=== PATIENT | female | born 1955 | race Caucasian/White ===

== ENCOUNTER 2018-10-04 10:39 | Emergency (ER) | payer OTHER ==
[~2018-10-04] VITALS: Ht 162 cm; Wt 90.7 kg
[~2018-10-04 10:39] MED LIST: GLUCOPHAGE1000 MG; HUMALOG100 UNIT/1; LISINOPRIL-HCT1 EAC2; LOVASTAT40; OMEPRAZOLE20 M2
[2018-10-04] MEDS ORDERED: FUROSEMIDE 80 M80 M1 PO (10:57)
[2018-10-04 12:12] LABS: ABSOLUTE BASOPHILS 0.1 thou/uL (0.0-0.2); ABSOLUTE EOSINOPHILS 0.5 thou/uL (0.0-0.7); ABSOLUTE LYMPHOCYTES 2.6 thou/uL (0.8-5.3); ABSOLUTE MONOCYTES 0.7 thou/uL (0.0-1.2); ABSOLUTE NEUTROPHILS 5.2 thou/uL (1.6-8.1); BASOPHILS 0.7 %; EOSINOPHILS 5.2 %; HEMATOCRIT 44.7 % (37.0-47.0); HEMOGLOBIN 15.1 gm/dL (12.0-15.0); LYMPHOCYTES 28.8 %; MCHC 33.7 g/dL (28.0-37.0); MCV 83.3 fL (80.0-100.0); MONOCYTES 7.6 %; MPV 9.4 fl. (7.2-11.1); NUCLEATED RBCS 0 /100WBC; PLATELET COUNT* 274 thou/uL (150-400); POLYS 57.7 %; RBC 5.37 mil/uL (4.20-5.00); RDW-CV 14.7 % (10.5-14.5)
[2018-10-04 12:29] LABS: ANION GAP 5 mmol/L (7-16); BUN 17 mg/dL (7-18); CALCIUM 8.8 mg/dL (8.5-10.1); CHLORIDE 102 mmol/L (98-107); CO2 32 mmol/L (21-32); CREATININE 0.9 mg/dL (0.6-1.3); GLUCOSE 340 mg/dL (70-99); POTASSIUM 3.6 mmol/L (3.5-5.1); SODIUM 139 mmol/L (136-145)
[2018-10-04 12:46] LABS: ALKALINE PHOSPHATASE 142 U/L (46-116); SGOT 18 U/L (15-37); SGPT 25 U/L (30-65); TOTAL BILIRUBIN 0.3 mg/dL (<0.1-1.0); TOTAL PROTEIN 6.9 g/dL (6.4-8.2); TROPONIN-I LEVEL <0.06 ng/mL (<0.06)
[2018-10-04] MEDS ORDERED: HYDROCODONE-AP1 EAC6 PO (13:50)
[2018-10-04] MEDS ORDERED: FLEXERIL PO (13:50)
[2018-10-04 14:12] VITALS: BP 193/65
--- NOTE | 2018-10-05 10:21 | EKG ---
[place] [address] ELECTROCARDIOGRAM REPORT Name: SHRUTHIJAN C Room: [facility]#: [id number] Admission: 10/04/18 Attend Phys: Discharge: 10/04/18 Date of : 51 Report #: [id number] THIS REPORT FOR: //name// [facility] ED Test Date: 2018-10-04 Test Time: 11:51:45 Pat Name: JAN HAWKINS Department: Room: Gender: F Lawn Care Technician: Anitha ANTHONY : 1955 Requested By: Chaka Silver Order Number: [id number] MD: Alverto Wilson Measurements Intervals [place] Rate: 66 P: 18 PA: 143 QRS: -21 QRSD: 107 T: 141 QT: 460 QTc: 482 Interpretive Statements Sinus rhythm Borderline left axis deviation Nonspecific T abnrm, anterolateral leads No previous ECG available for comparison Electronically Signed On 10-05-2018 10:21:02 PIN BALL MACHINE MECHANIC by Alverto Wilson [email or web address] <ELECTRONICALLY SIGNED> By: Alverto Wilson MD, [facility] 10/05/18 1021 1151 115 Alverto Wilson MD, FACC /EPI
== END 2018-10-04 14:19 | disposition home or self-care (01) ==
LOC: M.ERS 10:39
PROVIDERS: Emergency Medicine Emergency Medical Services
DX: S16.1XXA Strain of muscle, fascia and tendon at neck level, initial encounter (principal); E11.9 Type 2 diabetes mellitus without complications; I10 Essential (primary) hypertension; E78.5 Hyperlipidemia, unspecified; M25.511 Pain in right shoulder; I95.1 Orthostatic hypotension; Z90.49 Acquired absence of other specified parts of digestive tract; W18.39XA Other fall on same level, initial encounter; Y93.89 Activity, other specified; Y92.090 Kitchen in other non-institutional residence as the place of occurrence of the external cause; Y99.8 Other external cause status

== ENCOUNTER 2020-05-11 10:04 | Emergency (ER) | payer OTHER ==
[~2020-05-11] VITALS: Ht 167.6 cm; Wt 81.7 kg
[~2020-05-11 10:04] MED LIST changes: +FLEXERIL PO; +FUROSEMIDE 80 M80 M1 PO; +HYDROCODONE-AP1 EAC6 PO
[2020-05-11] MEDS ORDERED: HYDROCHLOROTH12.5 M2 PO (10:21)
[2020-05-11] MEDS ORDERED: PREGABALIN75 MG PO (10:22)
[2020-05-11] MEDS ORDERED: SINGULAIR 10 MG10 MG PO (10:22)
[2020-05-11] MEDS ORDERED: JARDIANCE25 MG PO (10:22)
[2020-05-11] MEDS ORDERED: LANTUS SUBQ (10:23)
[2020-05-11] MEDS ORDERED: JANUVIA100 MG PO (10:24)
[2020-05-11] MEDS ORDERED: MECLIZINE HCL25 M1 PO (10:24)
[2020-05-11] MEDS ORDERED: AMARYL4 MG PO (10:25)
[2020-05-11] MEDS ORDERED: NORVASC 2.5 MG2.5 M1 PO (10:25)
[2020-05-11] MEDS ORDERED: XARELTO20 MG PO (10:25)
[2020-05-11] MEDS ORDERED: PROTONIX40 M2 PO (10:25)
[2020-05-11 10:53] LABS: URINE BILIRUBIN NEGATIVE (Negative); URINE BLOOD 1+ (Negative); URINE CLARITY CLEAR; URINE COLOR YELLOW; URINE GLUCOSE-RANDOM 3+ (Negative); URINE KETONES NEGATIVE (Negative); URINE LEUKOCYTES-REFLEX NEGATIVE (Negative); URINE NITRITE-REFLEX NEGATIVE (Negative); URINE PROTEIN 3+ (Negative); URINE SPECIFIC GRAVITY 1.025 (1.005-1.030)
[2020-05-11 10:56] LABS: BACTERIA-REFLEX 1-9 Few /HPF (None Seen); CASTS None Seen /LPF (None Seen); CRYSTALS None Seen /LPF (None Seen); MUCUS 0-3 Light strn/LPF (None Seen); SQUAMOUS 0-3 Few /LPF (0-3); URINE RBC 3-10 Few /HPF (0-2); URINE WBC-REFLEX 0-5 Rare /HPF (0-5)
[2020-05-11 11:01] LABS: APTT 31.8 Seconds (25.0-31.3); INR 1.1; PROTIME 11.1 Seconds (9.20-11.50)
[2020-05-11 11:02] LABS: ABSOLUTE BASOPHILS 0.1 thou/uL (0.0-0.2); ABSOLUTE EOSINOPHILS 0.3 thou/uL (0.0-0.7); ABSOLUTE LYMPHOCYTES 2.5 thou/uL (0.8-5.3); ABSOLUTE MONOCYTES 0.8 thou/uL (0.0-1.2); ABSOLUTE NEUTROPHILS 5.4 thou/uL (1.6-8.1); BASOPHILS 0.9 %; EOSINOPHILS 3.1 %; HEMATOCRIT 45.8 % (37.0-47.0); LYMPHOCYTES 27.2 %; MCH 28.8 pg (26.0-34.0); MCHC 34.8 g/dL (28.0-37.0); MCV 82.7 fL (80.0-100.0); MONOCYTES 8.4 %; MPV 9.2 fl. (7.2-11.1); NUCLEATED RBCS 0 /100WBC; PLATELET COUNT* 270 thou/uL (150-400); POLYS 60.4 %; RBC 5.54 mil/uL (4.20-5.00); RDW-CV 14.6 % (10.5-14.5)
[2020-05-11 11:09] LABS: CALCIUM 9.1 mg/dL (8.5-10.1); CREATININE 0.8 mg/dL (0.6-1.3); POTASSIUM 3.6 mmol/L (3.5-5.1)
[2020-05-11 11:12] LABS: ALBUMIN 3.2 g/dL (3.4-5.0); TOTAL BILIRUBIN 0.4 mg/dL (<0.1-1.0); TOTAL PROTEIN 7.4 g/dL (6.4-8.2)
[2020-05-11] MEDS ORDERED: NORCO 5-325 TA1 EAC2 PO (12:09)
[2020-05-11] MEDS ORDERED: CENTANY30 GM TOP (12:09)
[2020-05-11] MEDS ORDERED: DOXYCYCLINE 10100 MG PO (12:09)
[2020-05-11 12:51] VITALS: BP 173/76
== END 2020-05-11 12:51 | disposition home or self-care (01) ==
LOC: M.ERS 10:04
PROVIDERS: Nurse Practitioner Family
DX: S30.0XXA Contusion of lower back and pelvis, initial encounter (principal); S50.01XA Contusion of right elbow, initial encounter; M87.9 Osteonecrosis, unspecified; N28.89 Other specified disorders of kidney and ureter; I10 Essential (primary) hypertension; E11.9 Type 2 diabetes mellitus without complications; E78.5 Hyperlipidemia, unspecified; Z90.49 Acquired absence of other specified parts of digestive tract; W18.39XA Other fall on same level, initial encounter; Y93.89 Activity, other specified; Y92.89 Other specified places as the place of occurrence of the external cause; Y99.8 Other external cause status

== ENCOUNTER 2020-11-01 18:28 | Observation (INO) | payer OTHER ==
[~2020-11-01] VITALS: Ht 162.6 cm; Wt 88.8 kg
[~2020-11-01 18:28] MED LIST changes: +AMARYL4 MG PO; +CENTANY30 GM TOP; +DOXYCYCLINE 10100 MG PO; +HYDROCHLOROTH12.5 M2 PO; +JANUVIA100 MG PO; +JARDIANCE25 MG PO; +LANTUS SUBQ; +MECLIZINE HCL25 M1 PO; +NORCO 5-325 TA1 EAC2 PO; +NORVASC 2.5 MG2.5 M1 PO; +PREGABALIN75 MG PO; +PROTONIX40 M2 PO; +SINGULAIR 10 MG10 MG PO; +XARELTO20 MG PO
[2020-11-01 18:34] VITALS: BP 187/62
[2020-11-01] MEDS ORDERED: HUMALOG100 UNIT/1 SUBQ (18:39)
[2020-11-01 19:00] LABS: HEMATOCRIT 45.5 % (37.0-47.0); MCH 26.4 pg (26.0-34.0); MCHC 33.1 g/dL (28.0-37.0); MCV 79.7 fL (80.0-100.0); MPV 8.4 fl. (7.2-11.1); NUCLEATED RBCS 0 /100WBC; PLATELET COUNT* 319 thou/uL (150-400); RDW-CV 15.5 % (10.5-14.5); WBC 13.5 thou/uL (4.0-11.0)
[2020-11-01 19:21] LABS: CALCIUM 8.5 mg/dL (8.5-10.1); CREATININE 1.1 mg/dL (0.6-1.3); POTASSIUM 3.3 mmol/L (3.5-5.1)
[2020-11-01 19:25] LABS: ABSOLUTE LYMPHOCYTES 0.4 thou/uL (0.8-5.3); ABSOLUTE MONOCYTES 0.5 thou/uL (0.0-1.2); ABSOLUTE NEUTROPHILS 12.6 thou/uL (1.6-8.1)
[2020-11-01 19:26] LABS: PLATELET ESTIMATE ADEQUATE
[2020-11-01 19:27] LABS: LARGE PLATELETS OCCASIONAL
[2020-11-01 19:29] LABS: ALBUMIN 3.1 g/dL (3.4-5.0); TOTAL BILIRUBIN 0.4 mg/dL (<0.1-1.0); TOTAL PROTEIN 7.2 g/dL (6.4-8.2)
[2020-11-01 19:37] LABS: PROTIME 10.8 Seconds (9.20-11.50)
[2020-11-01 20:19] LABS: URINE BILIRUBIN NEGATIVE (Negative); URINE BLOOD 1+ (Negative); URINE CLARITY CLEAR; URINE COLOR YELLOW; URINE GLUCOSE-RANDOM 3+ (Negative); URINE LEUKOCYTES-REFLEX NEGATIVE (Negative); URINE NITRITE-REFLEX NEGATIVE (Negative); URINE PROTEIN 3+ (Negative); URINE SPECIFIC GRAVITY 1.025 (1.005-1.030); URINE UROBILINOGEN 0.2 E.U./dl (0.2-1.0)
[2020-11-01 20:20] LABS: URINE KETONES 3+ (Negative)
[2020-11-01 20:29] LABS: HYALINE CASTS 0-3 Few /LPF (None Seen); SQUAMOUS >10 Many /LPF (0-3)
[2020-11-01 20:31] LABS: BACTERIA-REFLEX 1-9 Few /HPF (None Seen); CRYSTALS None Seen /LPF (None Seen); URINE RBC 3-10 Few /HPF (0-2); URINE WBC-REFLEX 0-5 Rare /HPF (0-5)
[2020-11-01 20:34] LABS: FINE GRANULAR CASTS 0-3 Few /LPF (None Seen); YEAST-REFLEX Present (None Seen)
[2020-11-01 22:29] VITALS: BP 165/74
[2020-11-01 23:00] VITALS: BP 114/97
--- NOTE | 2020-11-02 03:56 | NUR ---
RECEIVED PT FROM ED AT APPROX 2230. PT IS AWAKE AND ORIENTED X4. PT IS NOT IN DISTRESS, NO DESATURATIONS NONTED ON ROOM AIR. PT IS AFIB-RATE CONTROLLED ON THE STEAMER TENDER. PT IS ORIENTED ON THE ROOM SET UP AND ON THE USE OF CALL LIGHT. FALL PRECAUTIONS IN PLACE. HOURLY ROUNDING DONE FOR PT SAFETY.
[2020-11-02 05:36] VITALS: BP 172/69
[2020-11-02 08:30] VITALS: BP 187/65
--- NOTE | 2020-11-02 11:12 | EKG ---
[place] [address] ELECTROCARDIOGRAM REPORT Name: JAN HAWKINS Room: [address] M.R.#: [id number] Admission: 11/01/20 Attend Phys: Quinn Pino, Discharge: Date of : 51 Date of Service: 11/01/20 1835 Report #: [id number] THIS REPORT FOR: //name// [facility] ED Test Date: 2020-11-01 Test Time: 18:35:23 Pat Name: JAN HAWKINS Department: Room: [facility] Gender: F Cnc Service Technician: CAROLIN : 1955 Requested By: Mikey Rose Order Number: [id number] MD: Rashad Norris Measurements Intervals [place] Rate: 89 P: ND: QRS: -39 QRSD: 108 T: 135 QT: 376 QTc: 458 Interpretive Statements sinus rhythm Left axis deviation Anteroseptal infarct, old Abnormal T, consider ischemia, lateral leads Compared to ECG 10/04/2018 11:51:45 no change Electronically Signed On 11-02-2020 11:12:14 DOCUMENT PHOTOGRAPHER by Rashad Norris [email or web address] <ELECTRONICALLY SIGNED> By: Rashad Norris MD, FACC 11/02/20 1112 1835 1835 Rashad Norris MD, FAC /EPI
[2020-11-02 12:00] VITALS: BP 178/64
--- NOTE | 2020-11-02 12:09 | CON ---
[address] [address] CONSULTATION Name: JAN HAWKINS Room: [address] Marge#: [id number] Admission: 11/01/20 Attend Phys: Quinn Pino MD Discharge: Date of : 51 Report #: [id number] THIS REPORT FOR: cc: Kt Morillo Vincent R. DO ~ Rashad Norris MD [facility] DATE OF SERVICE: 11/02/2020 CARDIOLOGY CONSULTATION HISTORY OF PRESENT ILLNESS: The patient is a 65-year-old white female, who I was asked to see in the hospital today after she presented with nausea and vomiting. The history is obtained from the patient. There are no family members available. The patient has never been here to [place] before. She notes 4 years ago, she was having back pain and was admitted to [facility]. 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 She has been followed by Dr. Diaz in [facility] since that time. She has not had a stress test recently. She stays very active at home. She does have a history of COPD and does get short of breath if she overexerts herself. However, she was doing well until 3 days ago when she had her second dose of the COVID-19 vaccine. Then, 2 days ago, she started vomiting. She notes some stomach discomfort and nausea. Yesterday, she continued to vomit. Finally, they called the ambulance and she was brought here to [place] yesterday and admitted. She denies recent back pain, chest pain, or lower extremity edema. She notes occasional irregular heartbeat, but no syncope. PAST MEDICAL HISTORY: Otherwise significant for cholecystectomy, hypertension, diabetes, hyperlipidemia. CURRENT MEDICATIONS: Consist of lovastatin, omeprazole, HCTZ, Jardiance, Singulair, insulin, Januvia, Antivert, amlodipine, Xarelto, Amaryl, insulin. ALLERGIES: She has no known drug allergies. FAMILY HISTORY: Negative for heart disease. SOCIAL HISTORY: She is . She and her live in [place]. She quit smoking 35 years ago. No alcohol abuse. REVIEW OF SYSTEMS: No history of stroke. She has a history of COPD, uses inhaler; she sees a tangled yarn worker. No history of liver disease, kidney disease, cancer other than skin cancer, chronic skin condition, [place] [address] CONSULTATION Name: JAN HAWKINS Room: [address]#: [id number] Admission: 11/01/20 Attend Phys: Quinn Pino MD Discharge: Date of : 51 Report #: [id number] PHYSICAL EXAMINATION: GENERAL: Revealed an elderly female lying in bed. She appeared in no distress. VITAL SIGNS: She had a blood pressure of 160/70, pulse is 80, she is afebrile. HEENT: She was anicteric. Conjunctivae pink. Mucous members moist. NECK: Veins are nondistended. No carotid bruits. CHEST: Clear to auscultation. HEART: Regular rate and rhythm. No significant murmur. ABDOMEN: Soft. EXTREMITIES: Had no edema. Posterior tib pulse is 1+ bilaterally. SKIN: Cool and dry. NEUROLOGIC: Nonfocal. LYMPH: No adenopathy. MUSCULOSKELETAL: No joint effusion. ECG on admission showed a sinus rhythm. Artifact was noted. There was a left axis, septal Q-waves, nonspecific T-wave changes noted. Of note is that the computer interpretation of the ECG was atrial fibrillation, which I disagree with, but the patient has been in sinus rhythm since her admission. Workup in the Emergency Room: The patient had a portable chest x-ray performed last night that showed normal heart size, some scarring. She had actually had a CT scan of the abdomen with pelvis that showed mild enteritis. No obstruction. No ascites. LABORATORY WORKUP: Sodium 145, potassium 3.2, creatinine 1.1. Troponin 0.06. BNP 875. Lipase was 110. Liver function studies were normal. White blood cell count 13.5, hemoglobin 15.0. She had a COVID antigen stat test that was negative. IMPRESSION AND RECOMMENDATIONS: 1. Nausea and vomiting. Suspect gastroenteritis. 2. Misinterpretation of the ECG of atrial fibrillation. The patient appears to be in sinus rhythm. 3. Previous coronary artery bypass surgery. I would continue an aspirin a day. 4. Chronic obstructive pulmonary disease. The patient is followed by Pulmonary. 5. Hypertension. The patient is on a calcium deyanira and diuretic. 6. Diabetes. The patient is on insulin. 7. Hyperlipidemia. The patient is on a statin drug. <ELECTRONICALLY SIGNED> By: Rashad Norris MD, FACC 11/02/20 1209 1006 [id number] Norris MD, FACC /nt
[2020-11-02 14:22] VITALS: BP 178/64
--- NOTE | 2020-11-02 14:52 | NUR ---
CM COMPLETED THE INITIAL ASSESSMENT. PT STATED SHE LIVES AT HOME W/SPOUSE. PT IS RETIRED. ACTIVE AND INDEPENDENT W/ADLS. PT STATED SHE HAS 2 DIFF TYPES OF WALKERS. PT ALSO USES AN INHALER FOR "COPD" DX. PT STAYED AT [place] IN THE PAST BUT DOESNT WANT TO GO BACK THERE. PT HAS NO HX W/HH. NO ANTICIPATED CM NEEDS.
--- NOTE | 2020-11-02 15:30 | NUR ---
PT DISCHARGED HOME WITH DTR NO N/V OR DIARRHEA FEELS "GOOD" NO QUESTIONS OR CONCERNS
== END 2020-11-02 15:31 | disposition home or self-care (01) ==
LOC: M.ERS 18:28 → M.TBA-ER 21:33 → M.2W 21:33
PROVIDERS: Family Medicine; Physician Assistant; ADMIT Internal Medicine; ATTEND Internal Medicine
DX: R11.2 Nausea with vomiting, unspecified (principal); I10 Essential (primary) hypertension; E78.5 Hyperlipidemia, unspecified; E11.9 Type 2 diabetes mellitus without complications; I48.0 Paroxysmal atrial fibrillation; I25.10 Atherosclerotic heart disease of native coronary artery without angina pectoris; E87.6 Hypokalemia; K52.9 Noninfective gastroenteritis and colitis, unspecified; Z90.49 Acquired absence of other specified parts of digestive tract; Z20.828 Contact with and (suspected) exposure to other viral communicable diseases